=== PATIENT | female | born 1960 | race Caucasian/White ===

== ENCOUNTER 2017-11-28 13:17 | Emergency (ER) | payer OTHER ==
[~2017-11-28] VITALS: Ht 157.5 cm; Wt 65.8 kg
[~2017-11-28 13:17] MED LIST: TRAM50TA2 PO
[2017-11-28] MEDS ORDERED: METF500T5 (13:42)
[2017-11-28] MEDS ORDERED: LOSA100T28 (13:42)
[2017-11-28] MEDS ORDERED: AMLO5TAB2 (13:42)
[2017-11-28] MEDS ORDERED: ATOR10TA66 (13:42)
[2017-11-28] MEDS ORDERED: SITA100T12 (13:42)
[2017-11-28] MEDS ORDERED: TETANUS,DIPTH,PERTUSS P/F (BOOSTRIX) 0.5 ML VIAL IM ONE (13:45)
--- NOTE | 2017-11-28 13:57 | ED Upper Extremity ---
General Chief Complaint: Upper Extremity Stated Complaint: FELL IN YARD HURT ARM,WRIST Nursing Triage Note: TO ROOM REPORTS TRIPPED AND FEEL INTO HOUSE. ABRASION ACROSS KNUCKLE OF L HAND. Nursing Sepsis Screen: No Definite Risk Source: patient Exam Limitations: no limitations History of Present Illness Date Seen by Provider: Nov 28, 2017 Time Seen by Provider: 13:40 Initial Comments Patient is a 57-year-old female presents to the emergency room with complaints of left hand and left wrist pain. She reports that she was walking in her yard and tripped over a rock falling into the side of her house. She reports that the only injury she had his to her left hand and wrist, denies hitting her head , neck. She does have abrasions across to her second, third, and fourth knuckles on the left hand. Onset: just prior to arrival Pain/Injury Location: left wrist, left hand Method of Injury: fell Allergies and Home Medications Allergies Coded Allergies: Penicillins (Verified Allergy, Severe, 08/16/14) Home Medications Tramadol Hcl 50 Mg Tablet, 50 MG PO Q4H PRN for PAIN Prescribed by: ISABELL MONTANEZ on 08/16/14 [id number] Patient Home Medication List Home Medication List Reviewed: Yes Constitutional: see HPI; No chills, No fever Musculoskeletal: see HPI, joint pain (left wrist and hand); No joint swelling Skin: see HPI, other (abrasions to the left hand.) Past Tbrddug-Onxjtx-Hqirxt Hx Past Med/Social Hx: Reviewed Nursing Past Med/Soc Hx Patient Social History Alcohol Use: Denies Use Recreational Drug Use: No Smoking Status: Never a Smoker Recent Foreign Travel: No Contact w/Someone Who Travel: No Recent Infectious Disease Expo: No Immunizations Up To Date Date of Influenza Vaccine: Feb 28, 2014 Seasonal Allergies Seasonal Allergies: Yes Past Medical History Surgeries: Yes (LT FOOT) Orthopedic Respiratory: No Cardiac: No Neurological: No 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 oz. 65.386895gx; BMI Method:Stated General Appearance: WD/WN, no apparent distress Wrist: Yes normal ROM, Yes pain (left); No soft tissue tenderness, No swelling Hand: Left, abrasions (there is abrasions to the second, third, fourth DIP joints) Neurologic/Tendon: normal sensation, normal motor functions, normal tendon functions Neurologic/Psychiatric: alert, normal mood/affect, oriented x 3 Skin: normal color, warm/dry, other (as noted above) Progress/Results/Core Measures Results/Orders My Orders Orders - DENISE STRANGE Dipht,Pertuss(Acell),Tet Adult (Boostrix (11/28/17 13:45) Hand, Left, 3 Views (11/28/17 13:44) Forearm, Left, 2 Views (11/28/17 13:44) Medications Given in ED Vital Signs/I&O Blood Pressure Mean: 115 Progress Progress Note : Progress Note I have seen and evaluated the patient. I informed her of her normal x-rays. She agrees with plans of discharge. Return precautions were given. Departure Impression Primary Impression: Abrasion Additional Impression: Contusion of wrist Qualified Codes: S60.211A - Contusion of right wrist, initial encounter Disposition: 01 HOME, SELF-CARE Condition: Stable/Unchanged Departure-Patient Inst. Decision time for Depature: 14:38 Referrals: NO,LOCAL PHYSICIAN (PCP/Family) Primary Care Physician Add. Discharge Instructions: Your use ibuprofen and Tylenol as directed by the bottle for pain. Ice to the sore areas at 20 minute intervals. Watch for signs of infection such as redness , increased pain, drainage. Follow-up with her doctor within 1 week for recheck. Return back to the emergency room for any worsening symptoms or concerns as needed. All discharge instructions reviewed with patient and/or family. Voiced understanding. DENISE STRANGE Nov 28, 2017 13:57
--- NOTE | 2017-11-28 14:12 | Diagnostic Imaging Report ---
Indication: Left hand pain. Comparison: None available. Technique: 3 views of left hand were obtained. Findings: No acute fracture or traumatic malalignment. Joint spaces are well-preserved. No radiopaque foreign body or abnormal soft tissue mineralizations. Impression: No acute osseous abnormality of the left hand. Dictated by: Dictated on workstation # [id number]
--- NOTE | 2017-11-28 14:15 | Diagnostic Imaging Report ---
Indication: Left forearm pain. Comparison: None available. Technique: 2 views of the left forearm were obtained. Findings and impression: 1. No acute fracture within the left forearm. 2. Wrist and elbow are grossly normal in alignment. Dictated by: Dictated on workstation # [id number]
[2017-11-28 14:47] VITALS: BP 165/91
== END 2017-11-28 14:45 | disposition home or self-care (01) ==
LOC: EDUNIT# 13:17 → ER 13:19
DX: S60.212A Contusion of left wrist, initial encounter (principal); Z88.0 Allergy status to penicillin; Z23 Encounter for immunization; W01.0XXA Fall on same level from slipping, tripping and stumbling without subsequent striking against object, initial encounter
CPT/HCPCS: 73090; 73130; 90471; 90715